=== PATIENT | female | born 1955 | race Two or more races ===

== ENCOUNTER 2023-09-24 15:26 | Emergency (ER) | payer OTHER ==
[~2023-09-24] VITALS: Ht 157.5 cm; Wt 65.8 kg
[2023-09-24] MEDS ORDERED: COZAAR25 MG PO (16:15)
[2023-09-24] MEDS ORDERED: SINGULAIR10 MG PO (16:16)
[2023-09-24 18:52] LABS: HEMATOCRIT 36.8 % (36.0-45.00); HEMOGLOBIN 12.3 g/dL (12.0-15.00); MEAN CELL VOLUME 87.8 fL (80.00-100.00); MEAN CORPUSCULAR HEMOGLOBIN 29.4 pg (27.00-32.0); MEAN CORPUSCULAR HGB CONC 33.4 g/dl (32.0-36.0); PLATELET COUNT 278 K/uL (150-450); RED BLOOD COUNT 4.19 M/uL (4.00-6.00); RED CELL DISTRIBUTION WIDTH 14.6 % (11.5-14.5)
[2023-09-24 19:11] LABS: CALCIUM 8.9 mg/dL (8.5-10.1); CREATININE SERUM 0.76 mg/dL (0.55-1.02); GFR 75.68; POTASSIUM 3.61 mEq/L (3.5-5.1)
[2023-09-24 19:16] LABS: PH,URINE 6.5 (5.0-8.0); URINE APPEARANCE Clear; URINE BILIRRUBIN Negative (NEGATIVE); URINE BLOOD Large; URINE COLOR Yellow; URINE GLUCOSE Negative (NEGATIVE); URINE LEUKOCYTE Large; URINE NITRATE Negative; URINE PROTEIN Negative (NEGATIVE); URINE UROBILINOGEN 0.2 E.U./dl
[2023-09-24 19:17] LABS: URINE EPITHELIAL CELLS 3.3 uL (0.0-38.8); URINE RBC 13.6 uL (0.0-20.8); URINE WBC 251.4 uL (0.0-23.2)
== END 2023-09-24 21:27 | disposition home or self-care (01) ==
LOC: ER 15:26
PROVIDERS: General Practice
DX: N39.0 Urinary tract infection, site not specified (principal); I10 Essential (primary) hypertension; Z88.0 Allergy status to penicillin; Z88.8 Allergy status to other drugs, medicaments and biological substances